=== PATIENT | female | born 1970 | race Caucasian/White ===

== ENCOUNTER → 2018-12-12 13:35 | Outpatient (CLI) | payer OTHER, SELFPAY ==
--- NOTE | 2018-12-12 | DI.MRI.S_ITS ---
PROCEDURE: MR HEAD/BRAIN WO/W CON INDICATIONS: Anosmia TECHNIQUE: Noncontrast axial T1 spin echo, axial T2 fast spin echo, sagittal and axial FLAIR, coronal T2 fast spin echo, axial gradient echo, axial diffusion and ADC through the brain. After the administration of contrast, axial and coronal 3D VIBE or T1 spin echo with fat saturation through the brain. COMPARISON: None. FINDINGS: Image quality: Excellent. CSF Spaces: Basal cisterns are patent. No extra-axial fluid collections. Ventricles are normal in size and shape. Brain: No midline shift. No intracranial bleeds or masses. No abnormal intracranial enhancement. The brainstem appears normal. Diffusion-weighted images demonstrate no acute ischemic insults. No chronic ischemic insults. Normal intravascular flow voids are present. Skull and face: Calvarial marrow is normal in signal. Orbits appear normal. Sinuses: Sinuses and mastoids appear clear. IMPRESSION: MRI brain without acute intracranial abnormalities, suspicious enhancement, or mass lesions. Dictated by: Bruce Amaro M.D. on 12/12/2018 at 15:43 Approved by: Bruce Amaro M.D. on 12/12/2018 at 15:49
== END ==
PROVIDERS: PCP Physician Assistant; Visit Provider Student in an Organized Health Care Education/Training Program
DX: R43.0 Anosmia (principal)
CPT/HCPCS: 70553; A9579